=== PATIENT | female | born 1985 | race African-American/Black ===

== ENCOUNTER 2021-04-26 11:27 | Emergency (ER) | payer OTHER ==
[2021-04-26] MEDS ORDERED: Tetracaine 0.5% PF 4 ML BOT ONE (15:23)
[2021-04-26] MEDS ORDERED: Fluorescein Opthalmic Strip ONE (15:23)
== END 2021-04-26 16:49 | disposition home or self-care (01) ==
LOC: CSHERS 11:27
DX: H10.9 Unspecified conjunctivitis (principal)
CPT/HCPCS: 99283